=== PATIENT | male | born 1955 | race Caucasian/White ===

== ENCOUNTER → 2023-05-02 15:27 | Outpatient (BNVA) | payer BC, SELFPAY | PROVIDERS: PCP Family Medicine; Visit Provider Physician Assistant Surgical ==

== ENCOUNTER 2023-06-06 13:44 | Outpatient (AMB) | payer BC, SELFPAY ==
--- NOTE | 2023-06-06 13:50 | A.OFFVIS_ITS ---
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 He heard about our program online. His goal is to lose weight and achieve a healthy lifestyle as well as to improve, if not resolve, obesity related medical conditions, including HTN and HLD. He reports first being concerned about his weight lifelong, highest weight to date was 270. Current weight is 231.6 with a BMI of 35.2. He has tried multiple methods of weight loss including fad diets without permanent results. He lives with his family. 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 He states he would prefer to have surgery in October when he is not working (oct-january) He wakes at:?7 am, and goes to bed at?11 pm. Dinner is at 6 pm. Breakfast: skip, coffee NF half and half w stevia or eggs w bagel w butter AM snack: skip Lunch: deli wrap or sandwich PM snack: skip Dinner: chicken, salad, chicken parm, schnitzel After dinner: ice cream Other snacks: cake, pastry Liquids: snapple diet iced tea 48 oz, rare soda, OJ 8 oz Alcohol/marijuana/tobacco intake: none Exercise: none, no home equipment, could join a gym GERD score: 14 ELAINE score: 5 ESS score: 6 QOL score: 78 PFSH Surgical History No pertinent past surgical history Family History Mother Hypertension High cholesterol Lung cancer Father Hypertension High cholesterol Stroke Heart attack Brother Hypertension Daughter No problems noted. Daughter No problems noted. Social History Alcohol intake: never Patient Tobacco Use Status: Never used Tobacco Physical Exam Const General: cooperative, healthy appearing and no acute distress Orientation/consciousness: patient oriented x3 HEENT Head: Yes normal to inspection Ears: hearing grossly normal bilaterally General nose exam: Normal external nose present Face and sinus: Yes normal facial exam Eyes General: appearance normal, both eyes and all related structures Resp Effort & Inspection: normal respiratory effort Auscultation: clear to auscultation bilaterally Cardio Rate: regular rate Rhythm: regular rhythm Heart sounds: S1 normal heart sound present and S2 normal heart sound present GI Inspection: Yes normal to inspection, No distended and Yes obesity Palpation (GI): Soft to palpation, nontender and no guarding Auscultation: normal bowel sounds Skin General skin exam: no rashes or lesions noted Neuro General: patient oriented x3 Extrem General: No edema Psych Appearance: grossly normal Mental Status: mental status grossly normal Speech and movement: Normal speech and movement present Affect: normal affect Attitude: cooperative Assessment & Plan Assessment & Plan (1) Obesity (BMI 30-39.9): Code(s): E66.9 - Obesity, unspecified Plan: This is a?68 yo male who will start our SWL program to prepare for bariatric surgery.? Blood work, h pylori , CXR, ECG, Abd US and UGI will be ordered after the next appointment in late June or July as he wishes to push out the timeline at this time. He will be scheduled for RD and BH initial consultations. He will start SWL classes and watch the first three videos before her next appointment. ? Adequate sleep of 7-8 hours per night discussed, awakening at 7 am and going to bed at 11 pm ? Purchase body composition analyzer scale (Jerman freeman or Megan recommended) and check weight weekly. The best time to do this is first thing in the morning after going to the bathroom. 1. Nutritional counseling: Be sure to careful read the number of scoops per shake Start with 3 Premier Protein shakes ([employer], [employer], [employer]) First shake, (1 scoop in 8 oz low fat unsweetened almond milk or water) at 8am- 10am Second shake, (1 scoop in 8 oz low fat unsweetened almond milk or water) at 12pm-2pm 1 protein bar (Zone Perfect bars at [employer], [facility], or [employer]) at 3pm-5pm. Dinner at 6pm (9 forks of protein and 9 forks of salad/vegetables). Meal to include lean meat (beef, fish, pork, turkey, chicken), cooked vegetables or a salad with olive oil and/or fruits (berries, pears, apples, kiwi). Avoid salt, breads, potatoes, rice, pasta, desserts. Another shake with 1/2 scoop in 8 oz unsweetened almond milk at 8pm-10pm. Try to drink 64 oz of water daily and avoid soda and juices. ?2. Each shake would be drunk slowly, like coffee in a period of 2 hours. ?3. Cut each bar in 4 pieces and eat each piece in 30 min ?to make each bar last 2 hours. ?4. I emphasized the importance of measuring accurately the food portion and measure it carefully when serving the food on the plate ?5. The meal portions include 9 full-size forks of meat and 9 full-size forks of salad. You always eat the meat portion but you can replace up to half of the forks of salad/vegetables with rice, potatoes or pasta, or a fruit ?if you like. The less you do it the better weight loss will be. ?6. One full-size fork is what can be scooped on the fork without falling aside and not what can be bit with the fork. Use regular forks like those you find in a typical restaurant. ?7.? Please send me weight measurements as soon as possible and then once a week. Always include your diet and exercise plan. Alternatively come weekly at the office for weight checks and send me the measurements. ?8. Exercise counseling: Begin by watching a stretching for beginners video. Start slowly and begin to stretch your muscles. You should do this before and after each exercise session to prevent injury. Please join [employer] gym near your home. Ask the nursing agency manager or one of the trainers how to use the machines if you are unfamiliar with them. Start elliptical with a resistance of 2. Increase resistance by 1 every 3 min to your most comfortable resistance with a max resistance of 8. Reduce the resistance by 1 every 3 minutes back down to 2 and repeat cycles for 300 calories. Alternatively, start treadmill with a speed of 3.0 and incline of 0, increasing incline by 1 every 3 minutes to the highest comfortable level (max 6 for now) then decrease in the same fashion. Repeat process to a goal of 300 calories. Goal of 2000 calories burned or more weekly. You may also consider use of the stationary bike. The easiest would be to chose the fat-burn or interval training program on the machine and do this until you reach the 300 calorie goal. Alternatively, you can manually adjust the resistance in a similar fashion as mentioned above, (resistance of 2-8 with a goal speed of 12 mph). Tracking calories is essential. 9. Alternatively start walking outside daily, tracking calories with a goal of 300 calories per day, daily. You can download the liza [employer] which can track your time, distance and calories while walking outside. You press start in the liza when you start and then stop when you are finished. 10.? It is important to communicate with me weekly once you start, your weight and if you are having any problems 11. I will order the labs, EKG and chest X-Ray after our next appointment. 12. Discussed and answered all questions regarding?obtained consent to participate in the [facility]?Registry. 13. Please follow the diet plan exactly, without any change. If you do not like something about the plan or you feel hungry, you need to communicate with me so I can help you revise the plan. You should not change the plan yourself. Text me at [phone] 14. Goal is to lose at least 12 pounds in the first month 15. Goal is to lose 10% of your weight before surgery, which is about 23 lbs. Ultimate weight goal: 208 lbs or less before surgery Patient is morbidly obese and is not considered stable at this time.?I spent a total of 70 minutes reviewing/updating records, examining the patient and co unseling the patient on weight management as detailed above. Coding Level of Care Code New Pt Level 5 (34982) Diagnoses Obesity (BMI 30-39.9) E66.9 Time Spent (min) 70
[2023-06-06 13:54] VITALS: BP 118/60; PULSE 87; TEMP 36.8; O2SAT 99; BMI 35.2
== END 2023-06-06 15:15 | disposition home or self-care (01) ==
PROVIDERS: PCP Family Medicine; Visit Provider Physician Assistant Surgical
DX: E66.9 Obesity, unspecified (principal); Z68.35 Body mass index [BMI] 35.0-35.9, adult
CPT/HCPCS: 99205

== ENCOUNTER → 2023-06-06 13:44 | Outpatient (BNVA) | payer BC, SELFPAY | PROVIDERS: PCP Family Medicine; Visit Provider Physician Assistant Surgical ==

== ENCOUNTER 2023-07-22 10:04 | Outpatient (AMB) | payer BC, SELFPAY ==
--- NOTE | 2023-07-22 10:07 | MHC.OFFVISWM ---
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 They were last seen in the office on 06/06/23, recorded weight at that time was 231.6 pounds, with a BMI of 35.2. Today's weight is 230.4 pounds and BMI is 35. There has been a weight loss of 1.2 pounds since initiating the surgical weight loss program on 06/06/23 with a total body weight loss of 0.5 %. Pre op work up completed as follows: SWL classes:? []8 appts: not yet seen ? ? RD appts: not yet seen Labs: not yet done H. pylori: not yet done CXR: not yet done EKG: not yet done ABD U/S: not yet done UGI: not yet done The patient reports he has not started the meal plans as he felt he wasn't ready, but has decreased his food intake. He states he is now going to start the meal plan on July 26. Current meal plan includes: 3 Premier Protein shakes ([employer], [employer], [employer]) First shake, (1 scoop in 8 oz low fat unsweetened almond milk or water) at 8am-10am Second shake, (1 scoop in 8 oz low fat unsweetened almond milk or water) at 12pm-2pm 1 protein bar (Zone Perfect bars at [employer], [facility], or [employer]) at 3pm-5pm. Dinner at 6pm (9 forks of protein and 9 forks of salad/vegetables). Another shake with 1/2 scoop in 8 oz unsweetened almond milk at 8pm-10pm. Drinking 40 oz of water Current exercise plan includes: not started [facility] Surgical History No pertinent past surgical history Family History Mother Hypertension High cholesterol Lung cancer Father Hypertension High cholesterol Stroke Heart attack Brother Hypertension Daughter No problems noted. Daughter No problems noted. Social History Alcohol intake: never Patient Tobacco Use Status: Never used Tobacco Physical Exam Const General: healthy appearing and no acute distress Resp Effort & Inspection: normal respiratory effort Auscultation: clear to auscultation bilaterally Cardio Rate: regular rate Rhythm: regular rhythm GI Auscultation: normal bowel sounds Extrem General: Yes normal to inspection Assessment & Plan Assessment & Plan (1) Obesity (BMI 30-39.9): Code(s): E66.9 - Obesity, unspecified Plan: He states he is now ready to commit to the plans. Will schedule appropriate appointments Text me with any issues. 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 He may use RTD shakes at the [email or web address] for his meal plan (Premier Protein RTD 1/2 carton x 2 and 1/4 carton x 1 w added milk/water) Orders: Orders Vitamin B12 and Folate Today E66.9 - Obesity, unspecified, E78.00 - Pure hypercholesterolemia, unspecified, I10 - Essential (primary) hypertension Comprehensive Met. Panel Today E66.9 - Obesity, unspecified, E78.00 - Pure hypercholesterolemia, unspecified, I10 - Essential (primary) hypertension C Reactive Protein Today E66.9 - Obesity, unspecified, E78.00 - Pure hypercholesterolemia, unspecified, I10 - Essential (primary) hypertension Ferritin Today E66.9 - Obesity, unspecified, E78.00 - Pure hypercholesterolemia, unspecified, I10 - Essential (primary) hypertension Hemoglobin A1c Today E66.9 - Obesity, unspecified, E78.00 - Pure hypercholesterolemia, unspecified, I10 - Essential (primary) hypertension Insulin Today E66.9 - Obesity, unspecified, E78.00 - Pure hypercholesterolemia, unspecified, I10 - Essential (primary) hypertension IRON PROFILE Today E66.9 - Obesity, unspecified, E78.00 - Pure hypercholesterolemia, unspecified, I10 - Essential (primary) hypertension Lipid Panel Today E66.9 - Obesity, unspecified, E78.00 - Pure hypercholesterolemia, unspecified, I10 - Essential (primary) hypertension PTHI Today E66.9 - Obesity, unspecified, E78.00 - Pure hypercholesterolemia, unspecified, I10 - Essential (primary) hypertension TSH reflex Free T4 Today E66.9 - Obesity, unspecified, E78.00 - Pure hypercholesterolemia, unspecified, I10 - Essential (primary) hypertension Vitamin A Today E66.9 - Obesity, unspecified, E78.00 - Pure hypercholesterolemia, unspecified, I10 - Essential (primary) hypertension Vitamin B1 Today E66.9 - Obesity, unspecified, E78.00 - Pure hypercholesterolemia, unspecified, I10 - Essential (primary) hypertension Vitamin D 25-OH Total Today E66.9 - Obesity, unspecified, E78.00 - Pure hypercholesterolemia, unspecified, I10 - Essential (primary) hypertension Zinc Today E66.9 - Obesity, unspecified, E78.00 - Pure hypercholesterolemia, unspecified, I10 - Essential (primary) hypertension ECG 12 lead EKG Today E66.9 - Obesity, unspecified, E78.00 - Pure hypercholesterolemia, unspecified, I10 - Essential (primary) hypertension FL upper GI w air Today E66.9 - Obesity, unspecified, E78.00 - Pure hypercholesterolemia, unspecified, I10 - Essential (primary) hypertension Complete Blood Count Auto Diff Today E66.9 - Obesity, unspecified, E78.00 - Pure hypercholesterolemia, unspecified, I10 - Essential (primary) hypertension H Pylori Breath Test Today E66.9 - Obesity, unspecified, E78.00 - Pure hypercholesterolemia, unspecified, I10 - Essential (primary) hypertension US abdomen comp w elastography Today E66.9 - Obesity, unspecified, E78.00 - Pure hypercholesterolemia, unspecified, I10 - Essential (primary) hypertension XR chest 2V Today E66.9 - Obesity, unspecified, E78.00 - Pure hypercholesterolemia, unspecified, I10 - Essential (primary) hypertension Referrals Behavioral Health Referral E66.9 - Obesity, unspecified, E78.00 - Pure hypercholesterolemia, unspecified, I10 - Essential (primary) hypertension Nutrition/Dietitian Referral E66.9 - Obesity, unspecified, E78.00 - Pure hypercholesterolemia, unspecified, I10 - Essential (primary) hypertension Coding Level of Care Code Est Pt Level 3 (78101) Diagnoses Obesity (BMI 30-39.9) E66.9
[2023-07-22 10:12] VITALS: BP 136/64; PULSE 73; TEMP 36.7; O2SAT 99; BMI 35.0
== END 2023-07-22 10:44 | disposition home or self-care (01) ==
PROVIDERS: PCP Family Medicine; Visit Provider Physician Assistant Surgical
DX: E66.9 Obesity, unspecified (principal); Z68.35 Body mass index [BMI] 35.0-35.9, adult
CPT/HCPCS: 99214

== ENCOUNTER → 2023-07-22 10:04 | Outpatient (BNVA) | payer BC, SELFPAY | PROVIDERS: PCP Family Medicine; Visit Provider Physician Assistant Surgical | DX: E66.9 Obesity, unspecified (principal); Z68.35 Body mass index [BMI] 35.0-35.9, adult | CPT/HCPCS: 99211 ==

== ENCOUNTER 2023-07-22 10:56 | Outpatient (REF) | payer BC, SELFPAY ==
[2023-07-24 14:48] LABS: H Pylori Breath Test Negative (Negative)
== END 2023-07-22 10:57 | disposition home or self-care (01) ==
LOC: HO.LNP 10:56
PROVIDERS: Visit Provider Physician Assistant Surgical
DX: E66.9 Obesity, unspecified (principal); E78.00 Pure hypercholesterolemia, unspecified; I10 Essential (primary) hypertension
CPT/HCPCS: 83013

== ENCOUNTER 2023-07-23 17:03 | Outpatient (REF) | payer BC, SELFPAY | END 2023-07-23 17:04 | disposition home or self-care (01) | LOC: HO.LNP 17:03 | PROVIDERS: Visit Provider Physician Assistant Surgical | DX: Z13.89 Encounter for screening for other disorder (principal) ==

== ENCOUNTER 2023-08-13 09:14 | Outpatient (AMB) | payer BC, SELFPAY ==
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
== END 2023-08-13 10:01 | disposition home or self-care (01) ==
LOC: HO.HBST 09:14
PROVIDERS: PCP Family Medicine; Referring Provider Physician Assistant Surgical; Visit Provider Counselor Mental Health
DX: F41.8 Other specified anxiety disorders (principal); E66.9 Obesity, unspecified; Z68.35 Body mass index [BMI] 35.0-35.9, adult
CPT/HCPCS: 90791

== ENCOUNTER → 2023-08-13 09:14 | Outpatient (BNVA) | payer BC, SELFPAY | PROVIDERS: PCP Family Medicine; Referring Provider Physician Assistant Surgical; Visit Provider Counselor Mental Health ==

== ENCOUNTER 2023-08-21 09:11 | Outpatient (AMB) | payer BC, SELFPAY ==
--- NOTE | 2023-08-21 08:36 | MHC.OFFVISWM ---
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 They were last seen in the office on 07/22/23, recorded weight at that time was 230.4 pounds, with a BMI of 35. Today's weight is 215 pounds and BMI is 32.7. There has been a weight loss of 16.6 pounds since initiating the surgical weight loss program on 06/06/23 with a total body weight loss of 7.16 %. Pre op work up completed as follows: SWL classes:? []/8 BH appts: cleared-08/13/23 ? ? RD appts: 08/26/23 Labs: 07/24/23- outside facility, [facility] [place] CBC wnl H. pylori: 07/22/23-neg CXR: not yet done EKG: not yet done ABD U/S: 08/26/23 UGI: 10/01/23 The patient reports he is doing very well. 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 He feels as though he is not hungry without the third shake. He excluded the 8-10 am shake, he is also not doing the 3rd shake 4 days of the week. Current meal plan includes: 3 Premier Protein shakes ([employer], [employer], [employer]) First shake, (1 scoop in 8 oz low fat unsweetened almond milk or water) at 8am-10am Second shake, (1 scoop in 8 oz low fat unsweetened almond milk or water) at 12pm-2pm 1 protein bar (Zone Perfect bars at [employer], [employer], or [employer]) at 3pm-5pm. Dinner at 6pm (9 forks of protein and 9 forks of salad/vegetables). Another shake with 1/2 scoop in 8 oz unsweetened almond milk at 8pm-10pm. Drinking 48 oz of water Exercise plan: went to [employer] and is planning to join but has not done anything due to multiple shows. [facility] Surgical History No pertinent past surgical history Family History Mother Hypertension High cholesterol Lung cancer Father Hypertension High cholesterol Stroke Heart attack Brother Hypertension Daughter No problems noted. Daughter No problems noted. 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 Dinner at 6pm (9 forks of protein and 9 forks of salad/vegetables). States doesn't want/need anything after dinner Encouraged to start exercise continue to text weight weekly reminded of upcoming appts will get the rest of the labwork done at appt 08/26/23 Telehealth Telehealth Location of provider rendering services: practice address Location of patient: address on file Patient Identification confirmed using: Name, : Yes Telehealth method: video Patient verbally consented to treatment: Yes Patient verbally consented to billing insurance company: Yes Patient informed of any privacy concerns related to visit: Yes Minutes spent on Phone/Video with Pt.: 20 Coding Level of Care Code Tele Est Pt Level 3 (47991) Diagnoses Obesity (BMI 30-39.9) E66.9 Time Spent (min) 25
[2023-08-21 08:38] VITALS: BMI 32.7
== END 2023-08-21 09:14 | disposition home or self-care (01) ==
LOC: HO.HBS 09:11
PROVIDERS: PCP Family Medicine; Visit Provider Physician Assistant Surgical
DX: E66.9 Obesity, unspecified (principal); Z68.32 Body mass index [BMI] 32.0-32.9, adult
CPT/HCPCS: 99213

== ENCOUNTER → 2023-08-21 09:11 | Outpatient (BNVA) | payer BC, SELFPAY | PROVIDERS: PCP Family Medicine; Visit Provider Physician Assistant Surgical ==

== ENCOUNTER 2023-08-26 08:12 | Outpatient (REF) | payer BC, SELFPAY ==
--- NOTE | ~2023-08-26 | US_ITS ---
EXAMINATION: US COMPLETE ABDOMEN WITH LIVER ELASTOGRAPHY CLINICAL INFORMATION: Obesity. COMPARISON: None available. TECHNIQUE: Real-time imaging of the abdominal viscera. Noninvasive ultrasound liver fibrosis assessment is performed using Constantino ElastPQ point quantification shear wave elastography (2D-SWE) with a C5-2 MHz transducer. Multiple elastography samples are obtained. FINDINGS: PANCREAS: Normal. The visualized pancreatic head and body are normal in appearance. The remainder of the pancreas is obscured from visualization by the overlying bowel gas. ABDOMINAL AORTA: The proximal, middle, and distal aortic segments are normal in caliber. INFERIOR VENA CAVA: Visualized portions are normal. LIVER: The liver demonstrates normal size, contour and echogenicity. No intrahepatic biliary duct dilatation. Within the right hepatic lobe abutting the gallbladder, a 1.5 x 1.7 x 1.2 cm hyperechoic, circumscribed mass is seen. This shows no associated color Doppler flow. There are multiple simple hepatic cysts, which require no imaging follow-up. The largest on the right measures 1.9 cm, and of the left 1.4 cm. The right lobe measures 13.9 cm in length. The left lobe measures 11.6 cm in length. Portal flow is towards the liver (hepatopetal). Shear wave liver elastography median stiffness is 2.17 m/s (reference: normal median stiffness is 1.3 m/s or less). IQR/median stiffness to assess sampling precision is 0.09 (reference: good quality data set is IQR/median stiffness of 0.15 or less). GALLBLADDER: Normal. The gallbladder is physiologically distended without evidence of stones, sludge, polyps, wall thickening or pericholecystic fluid. COMMON BILE DUCT: Normal in caliber measuring 0.4 cm in diameter. RIGHT KIDNEY: At the lower pole laterally, a 6.3 cm benign, simple cyst is seen, for which no imaging follow-up is recommended. No hydronephrosis. No renal calculi or focal parenchymal lesions. The kidney measures 10.9 cm in maximum dimension. LEFT KIDNEY: At the upper pole, a 2.8 cm benign, simple cyst is seen, for which no imaging follow-up is recommended. No hydronephrosis. No renal calculi or focal parenchymal lesions. The kidney measures 11.0 cm in maximum dimension. SPLEEN: Normal. The spleen measures 10.9 cm in maximum dimension. FREE FLUID: None. US/US abdomen comp w elastography IMPRESSION: 1. A 1.7 cm hyperechoic, circumscribed mass is seen within the right hepatic lobe towards the gallbladder fossa. This has ultrasound features characteristic for benign hemangioma, and it is of doubtful clinical significance. If clinically indicated (i.e., history of hepatocellular disease or known malignancy), this could be further evaluated with dynamic CT or MRI. 2. Liver elastography: Measuremensts are consistent with compensated advanced chronic liver disease. REFERENCE: Society of Radiologists in Ultrasound Liver Stiffness Thresholds (2020): LIVER STIFFNESS THRESHOLDS: *Liver Stiffness equal or less than 1.3 m/s: High probability of being normal. *Liver Stiffness less than 1.7 m/s: In the absence of other known clinical signs, rules out compensated advanced chronic liver disease. *Liver Stiffness 1.7-2.1 m/s: Suggestive of compensated advanced chronic liver disease but need further test for confirmation. *Liver Stiffness over 2.1 m/s: Rules in compensated advanced chronic liver disease. *Liver Stiffness over 2.4 m/s: Suggestive of clinically significant portal hypertension. QUALITY OF DATA SET: *IQR/Median value equal or less than 0.15 implies a quality data set. *IQR/Median value over 0.15 implies a poor quality data set. SIGNIFICANT CHANGE FROM PRIOR EXAM: Significant change if liver stiffness measurement is 10% or greater from prior exam. OTHER CONSIDERATIONS: The stage of liver fibrosis may be overestimated in the setting of acute hepatitis, liver inflammation, elevated liver function tests, hepatic vascular congestion, obstructive cholestasis, non-fasting state, and infiltrative diseases such as amyloidosis and lymphoma. In some patients with NAFLD, the liver stiffness thresholds for compensated advanced chronic liver disease may be lower. In causes other than viral hepatitis and NAFLD, liver stiffness thresholds are not well established.
--- NOTE | ~2023-08-26 | XR_ITS ---
EXAMINATION: XR CHEST CLINICAL INFORMATION: Obesity COMPARISON: None available. TECHNIQUE: 2 views of the chest were obtained. FINDINGS: No significant abnormality is noted involving the heart, lungs, mediastinum, bony thorax or soft tissues. XR/XR chest 2V IMPRESSION: Unremarkable examination.
--- NOTE | 2023-08-26 08:31 | ECG_ITS ---
Test Reason : obesity Blood Pressure : / mmHG Vent. Rate : 074 BPM Atrial Rate : 074 BPM P-R Int : 178 ms QRS Dur : 100 ms QT Int : 376 ms P-R-T Axes : 060 028 026 degrees QTc Int : 417 ms Normal sinus rhythm Normal ECG No previous ECGs available Referred By: Chacorta Red Electronically Signed By:GREGG BANERJEE
[2023-08-26 10:01] LABS: Estimated Average Glucose 105 mg/dL; Hemoglobin A1c % 5.3 % (<6.0)
[2023-08-26 10:13] LABS: Alanine Aminotransferase 27 U/L (0-40); Albumin Level 4.4 g/dL (3.5-5.0); Alkaline Phosphatase 52 U/L (39-117); Anion Gap 15 (12-20); Aspartate Amino Transferase 23 U/L (5-37); Bilirubin Total 0.5 mg/dL (0.0-1.0); Blood Urea Nitrogen 72 mg/dL (9-16); Calcium 9.7 mg/dL (8.4-10.2); Carbon Dioxide 24 mmol/L (22-29); Chloride 105 mmol/L (96-108); Cholesterol 119 mg/dL (<200); Estimated Glomerular Filt Rate 36; Glucose Random 96 mg/dL (60-115); HDL Cholesterol 41 mg/dL (>40); Iron 81 mcg/dL (45-160); LDL Cholesterol Calculated 66 mg/dL (<100); Percent Iron Saturation 33 % (15-50); Potassium 3.8 mmol/L (3.3-5.1); Sodium 140 mmol/L (135-145); Total Iron Binding Capacity 247 mcg/dL (228-428); Total Protein 6.8 g/dL (6.5-8.0); Triglycerides 61 mg/dL (<150); Unsaturated Iron Binding 166 ug/dL
[2023-08-26 10:34] LABS: Ferritin 193 ng/mL (20-250); Insulin 15 uU/mL (2-29); TSH reflex Free T4 1.71 uIU/mL (0.32-4.0); Vitamin D 25-OH Total 48.6 ng/mL (>30)
[2023-08-26 10:36] LABS: Folate 17.5 ng/mL (> or = 4.0); Vitamin B12 674 pg/mL (200-900)
[2023-08-27 14:43] LABS: Calcium (PTHI) 9.8 mg/dL (8.6-10.3); PTHI 42 pg/mL (16-77)
[2023-08-29 06:03] LABS: Zinc 122 mcg/dL (60-130)
[2023-08-29 23:53] LABS: Vitamin A 92 mcg/dL (38-98)
[2023-08-30 17:28] LABS: Vitamin B1 40 nmol/L (8-30)
== END 2023-08-26 08:13 | disposition home or self-care (01) ==
LOC: HO.US 08:12
PROVIDERS: PCP Family Medicine; Visit Provider Physician Assistant Surgical
DX: E66.9 Obesity, unspecified (principal); E78.00 Pure hypercholesterolemia, unspecified; I10 Essential (primary) hypertension; Z71.3 Dietary counseling and surveillance
CPT/HCPCS: 36415; 71046; 76705; 76981; 80053; 80061; 82306; 82607; 82728; 82746; 83036; 83525; 83540; 83970; 84425; 84443; 84590; 84630; 86140; 93005; 97802

== ENCOUNTER 2023-08-26 13:17 | Outpatient (AMB) | payer BC, SELFPAY ==
--- NOTE | 2023-08-26 13:06 | MHC.AMNUTRGE ---
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 would prefer to do premade shakes instead. does not particularly enjoy the bars . dinner protein and veg SWL online classes: completed, scored well, reviewed. Dietary counseling reduction Diagnosis Nutrition problem #1 overweight/obesity As related to (etiology) #1 excess energy intake and physical inactivity As evidenced by (sign/symptom) #1 high BMI Monitoring/Goals Nutrition problem monitoring total energy intake, level of knowledge/skill, total PRO intake, total CHO intake, weight and oral fluids Outcome progress progressing Learning/Education Readiness to learn good Stages of change action Educational materials provided Yes Most Recent Diabetes Results: Cholesterol 119 mg/dL (<200) 08/26/23 HDL Cholesterol 41 mg/dL (>40) 08/26/23 Triglycerides 61 mg/dL (<150) 08/26/23 Creatinine 1.89 mg/dL (0.5-1.4) H 08/26/23 Blood Urea Nitrogen 72 mg/dL (9-16) H 08/26/23 Sodium 140 mmol/L (135-145) 08/26/23 Potassium 3.8 mmol/L (3.3-5.1) 08/26/23 Chloride 105 mmol/L (96-108) 08/26/23 Carbon Dioxide 24 mmol/L (22-29) 08/26/23 Calcium 9.7 mg/dL (8.4-10.2) 08/26/23 AST 23 U/L (5-37) 08/26/23 ALT 27 U/L (0-40) 08/26/23 Total Protein 6.8 g/dL (6.5-8.0) 08/26/23 Albumin 4.4 g/dL (3.5-5.0) 08/26/23 [facility] Surgical History No pertinent past surgical history Family History Mother Hypertension High cholesterol Lung cancer Father Hypertension High cholesterol Stroke Heart attack Brother Hypertension Daughter No problems noted. Daughter No problems noted. Social History Alcohol intake: never Patient Tobacco Use Status: Never used Tobacco Assessment & Plan Assessment & Plan (1) Obesity (BMI 30-39.9): Code(s): E66.9 - Obesity, unspecified Patient Instructions: recommended trying to decrease the load on the kidneys by sticking to 20g protein per sitting. If drinking the 30g shakes make last 3-4 hours. Pt is cleared from a nutrition standpoint for bariatric surgery Telehealth Telehealth Location of provider rendering services: practice address Location of patient: address on file Patient Identification confirmed using: Name, : Yes Telehealth method: video Patient verbally consented to treatment: Yes Patient verbally consented to billing insurance company: Yes Patient informed of any privacy concerns related to visit: Yes Minutes spent on Phone/Video with Pt.: 35 Coding Level of Care Code Nutr Indiv Intake (42344) Diagnoses Obesity (BMI 30-39.9) E66.9 Time Spent (min) 35
== END 2023-08-26 13:47 | disposition home or self-care (01) ==
LOC: HO.HBS 13:17
PROVIDERS: PCP Family Medicine; Visit Provider Dietitian, Registered
DX: E66.9 Obesity, unspecified (principal)

== ENCOUNTER 2023-09-11 08:10 | Outpatient (AMB) | payer BC, SELFPAY ==
--- NOTE | 2023-09-11 17:16 | A.OFFVIS_ITS ---
Intake VS Expanded 09/11/23 17:17 Height 5 ft 8 in Weight 215 lb BMI 32.7 Intake Visit Reasons: TV Consult/Transfer [place] Allergies atropine Allergy (Mild, Verified 09/11/23 17:18) UNKNOWN Medication List - Last Reconciled 09/11/23 by Emeterio Horn MD atorvastatin 10 mg PO DAILY bupropion HCl 200 mg PO DAILY chlorthalidone 25 mg PO DAILY lisinopril 10 mg PO DAILY HPI TV Consult/Transfer [place] HPI Details Start time: 2pm, End time: 3pm ?I spent 40 minutes speaking with the patient on the phone plus an additional 20 minutes reviewing and updating records for a total of 60 minutes HPI Comments History of Present Illness Details Overall weight loss: 15.4lbs, or 6.68% TBWL All preop work-up was reviewed. UGI is pending We discussed extensively the issue of the elevated creatinine and potential causes. Lisinopril was reduced by his tail edger to 10mg per day Did report some lightheadedness with bending over Is doing 2 Premier protein shakes with (2 scoops each in 8oz almond milk) and one meal (9 forks of meat and 9 forks of salad or vegetables) Exercise: occasional outside walking. Just joined a Gym and will work with a diabetes trainer. [facility] Surgical History No pertinent past surgical history Family History Mother Hypertension High cholesterol Lung cancer Father Hypertension High cholesterol Stroke Heart attack Brother Hypertension Daughter No problems noted. Daughter No problems noted. Social History Alcohol intake: never Patient Tobacco Use Status: Never used Tobacco Assessment & Plan Assessment & Plan (1) Obesity (BMI 30-39.9): Code(s): E66.9 - Obesity, unspecified Plan: 1. Plan for lap sleeve gastrectomy. If diaphragmatic or ventral hernias are present at time of surgery, these will be repaired laparoscopically as well. Risks and complications were discussed in detail including possible conversion to an open procedure, anastomotic leak, bleeding requiring transfusion, small bowel obstruction, , DVT and pulmonary embolism, cardiac, or pulmonary complications, as middle or intermediate school principal complications such as anastomotic ulcer, insufficient weight loss and vitamin deficiencies. I emphasized the importance of close follow-up, adherence to instructions and good communication. 2. Change nutritional plan to two Premier protein shakes with HALF scoop each in 8oz almond milk at 7am-9am and 10am-12pm, lunch at 1-2pm (9 forks of protein and 9 forks of salad or vegetables) and 2 more Premier shakes with ONE scoop each in 8oz almond milk at 4pm-6pm and 7pm-9pm 3. Try the lemon flavor Celebrate protein bars from the hospital's gift shop and let me know if you like them 4.Check your blood pressure every monring you wake up and let me know if it is less than 120/70 mmHg at any point 5. Send me weight measurements on Saturday and then weekly on Fridays (2) BMI 31.0-31.9,adult: Code(s): Z68.31 - Body mass index [BMI] 31.0-31.9, adult (3) CKD (chronic kidney disease): Code(s): N18.9 - Chronic kidney disease, unspecified (4) Hypercholesterolemia: Code(s): E78.00 - Pure hypercholesterolemia, unspecified (5) HTN (hypertension): Code(s): I10 - Essential (primary) hypertension (6) Mixed anxiety and depressive disorder: Code(s): F41.8 - Other specified anxiety disorders Telehealth Telehealth Location of provider rendering services: practice address Location of patient: address on file Patient Identification confirmed using: Name, : Yes Telehealth method: voice only Patient verbally consented to treatment: Yes Patient verbally consented to billing insurance company: Yes Patient informed of any privacy concerns related to visit: Yes Minutes spent on Phone/Video with Pt.: 60 Coding Level of Care Code Tele Est Pt Level 5 (82810) Diagnoses Obesity (BMI 30-39.9) E66.9 BMI 31.0-31.9,adult Z68.31 CKD (chronic kidney disease) N18.9 Hypercholesterolemia E78.00 HTN (hypertension) I10 Mixed anxiety and depressive disorder F41.8 Time Spent (min) 60
[2023-09-11 17:17] VITALS: BMI 32.7
== END 2023-09-11 17:34 | disposition home or self-care (01) ==
LOC: HO.HBS 08:10
PROVIDERS: PCP Family Medicine; Visit Provider Surgery
DX: E66.9 Obesity, unspecified (principal); Z68.31 Body mass index [BMI] 31.0-31.9, adult; I12.9 Hypertensive chronic kidney disease with stage 1 through stage 4 chronic kidney disease, or unspecified chronic kidney disease; N18.9 Chronic kidney disease, unspecified
CPT/HCPCS: 99443

== ENCOUNTER → 2023-09-11 08:10 | Outpatient (BNVA) | payer BC, SELFPAY | PROVIDERS: PCP Family Medicine; Visit Provider Surgery ==

== ENCOUNTER 2023-10-01 08:24 | Outpatient (REF) | payer BC, SELFPAY ==
--- NOTE | ~2023-10-01 | FL_ITS ---
EXAMINATION: XR FLUOROSCOPY UPPER GI WITH AIR CLINICAL INFORMATION: Preop evaluation prior to bariatric surgery COMPARISON: None TECHNIQUE: Fluoroscopic air contrast upper GI examination was performed utilizing standard techniques with thin and thick barium and effervescent granules. Numerous spot images were obtained. FINDINGS: Lateral cine images of the oropharynx and hypopharynx demonstrate normal swallow mechanism with normal epiglottic inversion and soft palate elevation. No tracheal penetration, glottic or subglottic aspiration identified. No nasopharyngeal reflux present. There is a small round filling defect noted in the hypopharynx of unknown etiology (refer to cine series #2, image 12 of 69). There is mild cricopharyngeal achalasia present. Dual and single contrast images of the esophagus demonstrate an irregular appearance of the mid esophageal mucosa that may be related to early Castro's change, representing a developing benign stricture (refer to cine series #2, image 2 of 69). This mild degree of esophageal narrowing was noted throughout the examination. No mass, or ulcerations are identified. Nonpropulsive tertiary contractions and to and fro motion of the barium column are noted throughout the esophagus represents esophageal dysmotility. A small hiatal hernia is present. Gastroesophageal reflux is seen up to the level of thoracic inlet. Dual contrast and single contrast images of the stomach demonstrated normal contour and mucosal pattern without evidence of mass, ulceration, or other abnormality. Contrast freely passed into the gastric antrum and duodenal bulb without delay. Single and air-contrast images of the duodenal bulb demonstrate no abnormality. The duodenal sweep has a normal appearance, course, and mucosal fold appearance. The imaged proximal jejunum has a normal fold pattern and caliber. FLUOROSCOPY TIME: 3 minutes 12 seconds Number of Spot Images: 8 Number of Cine: 8 DOSE AREA PRODUCT: 2409 uGy-m2 (microgray-meter squared) FL/FL upper GI w air IMPRESSION: 1. Small round filling defect noted in the hypopharynx, unknown etiology. Appears to be related possibly to the piriform sinuses. Recommend postcontrast CT neck and/or direct visualization of the hypopharynx. 2. Mild cricopharyngeal achalasia. 3. Irregular appearance of the midesophagus mucosa that may represent minimal benign stricture, possibly based upon early Castro's changes. Recommend endoscopic evaluation 4. Small type I hiatal hernia. 5. Significant gastroesophageal reflux. 6. Presbyesophagus. This procedure was performed by Js Montiel PA-C, and supervised by Dr. Real. CHRISTOFER Farrar was notified of the above via secure text.
== END 2023-10-01 08:25 | disposition home or self-care (01) ==
LOC: HO.XRAY 08:24
PROVIDERS: PCP Family Medicine; Visit Provider Physician Assistant Surgical
DX: E66.9 Obesity, unspecified (principal); I10 Essential (primary) hypertension; E78.00 Pure hypercholesterolemia, unspecified
CPT/HCPCS: 74246

== ENCOUNTER → 2023-10-01 08:25 | Outpatient (BNV) | payer BC, SELFPAY | PROVIDERS: PCP Family Medicine; Visit Provider Radiology Diagnostic Radiology | DX: E66.9 Obesity, unspecified (principal) | CPT/HCPCS: 74246 ==

== ENCOUNTER 2023-10-11 08:17 | Outpatient (AMB) | payer BC, SELFPAY ==
--- NOTE | 2023-10-11 09:57 | MHC.OFFVISWM ---
Intake VS Expanded 10/11/23 10:15 Height 5 ft 8 in Weight 200 lb 8 oz BMI 30.5 Body Fat % 30.7 Body Fat Mass 61.6 Fat Free Mass 139.2 Visceral Fat Rating 13 Body Water % 50 Body Water Mass 100.4 Basal Metabolic Rate/Score 1,747 Intake Visit Reasons: TV Follow Up SWL Allergies atropine Allergy (Mild, Verified 09/11/23 17:18) UNKNOWN HPI TV Follow Up SWL HPI Details Start time: 9.50am, End time: 10.20am ?I spent 25 minutes speaking with the patient on the phone plus an additional 5 minutes reviewing and updating records for a total of 30 minutes HPI Comments History of Present Illness Details Overall weight loss: 29.6lbs, or 12.85% TBWL Is doing 2 Premier shakes (1 scoop in 8oz almond milk) and one meal (9 forks of protein and 9 forks of salad or vegetables). Occasionally he does a Celebrate protein bar Exercise: is doing treadmill at the gym daily for 300 calories [facility] Surgical History No pertinent past surgical history Family History Mother Hypertension High cholesterol Lung cancer Father Hypertension High cholesterol Stroke Heart attack Brother Hypertension Daughter No problems noted. Daughter No problems noted. Social History Alcohol intake: never Patient Tobacco Use Status: Never used Tobacco Assessment & Plan Assessment & Plan (1) Obesity (BMI 30-39.9): Code(s): E66.9 - Obesity, unspecified Plan: 1. Continue same nutritional plan of 2 Premier shakes (1 scoop in 8oz almond milk) and one meal (9 forks of protein and 9 forks of salad or vegetables). Use the Celebrate protein bar when hungry at night 2. Exercise: continue treadmill at the gym daily for 300 calories. Goal is to burn 2000 calories per week on exercise, which means either 300 calories daily, or 330 calories 6 days per week, or 400 calories 5 days per week, or 500 calories 4 days per week, or 650 calories 3 days per week. 3. Upper endoscopy to assess the severity of GERD, presbyesophagus and crycopharyngeal achalasia 4. Continue to send me weight measurements weekly on Fridays (2) BMI 30.0-30.9,adult: Code(s): Z68.30 - Body mass index [BMI] 30.0-30.9, adult Telehealth Telehealth Location of provider rendering services: practice address Location of patient: address on file Patient Identification confirmed using: Name, : Yes Telehealth method: voice only Patient verbally consented to treatment: Yes Patient verbally consented to billing insurance company: Yes Patient informed of any privacy concerns related to visit: Yes Minutes spent on Phone/Video with Pt.: 30 Coding Level of Care Code Tele Est Pt Level 4 (20221) Diagnoses Obesity (BMI 30-39.9) E66.9 BMI 30.0-30.9,adult Z68.30 Time Spent (min) 30
[2023-10-11 10:15] VITALS: BMI 30.5
== END 2023-10-11 10:20 | disposition home or self-care (01) ==
LOC: HO.HBS 08:18
PROVIDERS: PCP Family Medicine; Visit Provider Surgery
DX: E66.9 Obesity, unspecified (principal); Z68.30 Body mass index [BMI] 30.0-30.9, adult
CPT/HCPCS: 99443

== ENCOUNTER → 2023-10-11 08:17 | Outpatient (BNVA) | payer BC, SELFPAY | PROVIDERS: PCP Family Medicine; Visit Provider Surgery ==

== ENCOUNTER 2023-10-22 09:39 | Day surgery (SDC) | payer BC, SELFPAY ==
[2023-10-16 09:20] VITALS: BMI 30.4
--- NOTE | 2023-10-19 21:03 | P.HPSUR_ITS ---
Pre-Procedural Eval Section A Date of Service: 10/19/23 The patient is an INPATIENT: No The History & Physical has been completed within 30 days and I have reviewed it.: Yes Section B Chief Complaint: Abnormal findings on diagnostic imaging of other p Relevant Family History (Specify if Yes): No Relevant Social History: None Present Medications: None Medical History: No relevant PMH History of Previous Operations: No relevant previous surgery Allergies: Allergies Allergy/AdvReac Type Severity Reaction Status Date / Time atropine Allergy Mild UNKNOWN Verified 09/11/23 17:18 Review of Systems Sugical H&P ROS: Negative: Constitution, Cardiovascular, Respiratory, Neurological, Psychiatric, Hem-Onc, Allergic/Immunologic, Gastrointestinal, Genitourinary, Musculoskeletal, Integumentary, Endocrine and Eyes/Ear s/Nose/Throat Exam Surgical H&P Exam: Normal: HEENT, Normal: Heart, Normal: Lungs, Normal: Extremities, Normal: Abdomen, Normal: Skin and Normal: Neurological Plan Diagnosis/Plan: Unchanged I have reviewed the history and physical and performed a pertinent physical examination on my patient. No changes have occurred unless specified. Time Spent With Patient Time: Total time managing care of this patient today ____ minutes.
--- NOTE | 2023-10-21 10:08 | HO.ANESPROP2 ---
Documented by User: Mandy Dela Cruz NP 10/21/23 10:09 HPI - Anesthesia Eval Consult details Narrative: 68yo M for Upper Endoscopy PMF Active Problems Active Problems: All Active Problems (Updated 10/16/23 @ 09:18 by Tyesha Choudhary RN) BMI 30.0-30.9,adult (Acute) Abnormal UGI series (Acute) BMI 31.0-31.9,adult (Acute) CKD (chronic kidney disease) (Acute) Mixed anxiety and depressive disorder (Acute) Hypercholesterolemia (Acute) HTN (hypertension) (Acute) Obesity (BMI 30-39.9) (Acute) Past Medical History Medical History Chronic renal insufficiency Depression Anxiety Elevated cholesterol HTN (hypertension) Family History Family History Mother Hypertension High cholesterol Lung cancer Father Hypertension High cholesterol Stroke Heart attack Brother Hypertension Daughter No problems noted. Daughter No problems noted. Surgical History Surgical History Hx of colonoscopy No pertinent past surgical history Social History Alcohol intake: never Patient Tobacco Use Status: Never used Tobacco Use of substances other than those prescribed or required for medical reasons: No Are you DNR?: No Advance Directives: No Advance Directives Information Provided: Yes Meds Allergies Allergy/AdvReac Type Severity Reaction Status Date / Time atropine Allergy Mild UNKNOWN Verified 10/22/23 10:11 Home Medications Medication Instructions Recorded Confirmed Last Taken Type atorvastatin 10 mg tablet 10 mg PO DAILY 05/03/23 10/22/23 10/22/23 History bupropion HCl 200 mg tablet,12 hr 200 mg PO DAILY 05/03/23 10/22/23 10/22/23 History sustained-release chlorthalidone 25 mg tablet 25 mg PO DAILY 05/03/23 10/22/23 10/22/23 History lisinopril 20 mg tablet 10 mg PO DAILY 09/11/23 10/22/23 10/22/23 History Exam Height,Weight and Vital Signs: Height 5 ft 8 in Weight 90.718 kg Pertinent Lab Results Pertinent Lab Results: Laboratory Tests 08/26/23 08:30 Sodium 140 Potassium 3.8 Chloride 105 Carbon Dioxide 24 BUN 72 H Creatinine 1.89 H Narrative Narrative: EKG 08/2023 Vent. Rate : 074 BPM Atrial Rate : 074 BPM P-R Int : 178 ms QRS Dur : 100 ms QT Int : 376 ms P-R-T Axes : 060 028 026 degrees QTc Int : 417 ms Normal sinus rhythm Normal ECG No previous ECGs available Assessment and Plan Assessment Anesthesia Assessment: Chart Reviewed Documented by User: Livan Singh MD 10/22/23 11:53 PMFSH Past Medical History Medical History Chronic renal insufficiency Depression Anxiety Elevated cholesterol HTN (hypertension) Family History Family History Mother Hypertension High cholesterol Lung cancer Father Hypertension High cholesterol Stroke Heart attack Brother Hypertension Daughter No problems noted. Daughter No problems noted. Family history of problems with anesthesia: No Surgical History Surgical History Hx of colonoscopy No pertinent past surgical history History of Problems with Anesthesia: No Social History Alcohol intake: never Patient Tobacco Use Status: Never used Tobacco Use of substances other than those prescribed or required for medical reasons: No Are you DNR?: No Advance Directives: No Advance Directives Information Provided: Yes Meds Allergies Allergy/AdvReac Type Severity Reaction Status Date / Time atropine Allergy Mild UNKNOWN Verified 10/22/23 10:11 Home Medications Medication Instructions Recorded Confirmed Last Taken Type atorvastatin 10 mg tablet 10 mg PO DAILY 05/03/23 10/22/23 10/22/23 History bupropion HCl 200 mg tablet,12 hr 200 mg PO DAILY 05/03/23 10/22/23 10/22/23 History sustained-release chlorthalidone 25 mg tablet 25 mg PO DAILY 05/03/23 10/22/23 10/22/23 History lisinopril 20 mg tablet 10 mg PO DAILY 09/11/23 10/22/23 10/22/23 History Exam Airway Mallampati Class: II TM Dist: >3cm Neck ROM: Full Loose/Missing/Broken Teeth: No Heart: [id number] Lungs: cta b/l Assessment and Plan Assessment Anesthesia Assessment: Anesthesia Plan Discussed Final Anesthetic Review Family History of Problems with Anesthesia: No History of Problems with Anesthesia: No NPO: Yes ASA Class: III Final Preanesthetic Review: No Changes in Pt Med Stat, Meds/Allgs Chart Reviewed, Consent Obtained/Reviewed and Anes Risks/Benef Reviewed Patient Risk: Intermediate Procedure Risk: Intermediate Assessment/Block/Sedation in SS: Assess/Block/Sedation-SS Anesthetic Plan Anesthetic Plan: MAC: and Agree w/ Assess. and Plan Disposition: Standard PACU
[2023-10-22 10:06] VITALS: BP 133/81; PULSE 76; RESP 16; TEMP 36.1; O2SAT 98
[2023-10-22] MEDS: Lactated Ringers 1,000 ML 100 ML IVCONT (10:06)
--- NOTE | 2023-10-22 11:20 | P.BOP_ITS ---
Brief Operative Note Date of Service: 10/22/23 Post-op diagnosis: same (GERD and hiatal hernia) Procedure: PROCEDURE DATE: 10/22/2023 PREOPERATIVE DIAGNOSIS: GERD and hiatal hernia POSTOPERATIVE DIAGNOSIS: ?Same as above. 1) small hiatal hernia, 2) gastric polyp PROCEDURE: [id number] with biopsies Surgeon: ?Óscar Horn M.D.. Ph.D. Housing Property Manager: None ? Anesthesia: IV sedation Estimated blood loss: ?Minimal FINDINGS AND PROCEDURE: ? OPERATIVE INDICATIONS: ?The patient is a 68 year old male known to me who is evaluated for morbid obesity and bariatric surgery. Recent UGI was suggestive of a hiatal hernia, presbyesophagus and severe GERD. He presents for an endoscopy and biopsies. Risks and complications of the surgery were discussed with the patient in advance particularly the possibility of perforation or bleeding that may require surgical intervention. The patient understood the risks and was in agreement with the plan. ? PROCEDURE: After informed consent was obtained by the patient, the patient was ?transferred to the Operating Room and was placed in the supine position.? After successful induction of IV sedation, a mouth block was inserted and the patient was placed in the left lateral decubitus position. An upper endoscopy was performed next, the oropharynx and esophagus appeared within the normal limits. There was a small hiatal hernia. The z-line was regular. Two biopsies were obtained from the distal esohagus 2-3 cm proximal to the GE junction and two additional biopsies from the GE junction. The stomach was entered and it appeared to be of normal size. There was a small polyp in the prepyloric region which was biopsied. There was no stricture or ulcer. A biopsy was obtained from the proximal stomach. No significant bleeding was noted from any of the biopsy sites. The scope was then advanced into the duodenum which appeared to be normal as well. At that point the duodenum ?and the stomach were decompressed and the scope was withdrawn from the patient's mouth. The patient extubated and was transferred in stable condition to the Recovery Room for further care. I was present and performed all steps of the procedure. There were no residents to assist with this case. Óscar Horn M.D., Ph.D. Surgeon: Emeterio Horn MD Anesthesia: MAC Was an Housing Property Manager used for this Procedure?: No Estimated blood loss (mL): 0 IV fluids (mL): 400 Urine output (mL): 0 (No Knutson to record output) Pathology: other (1) gastric polyp x1, 2) gastric fundus x1, 3) EGJ x2, 4) distal esophagus x2) Condition: stable Disposition: PACU
[2023-10-22 11:59] VITALS: BP 105/68; PULSE 80; RESP 16; TEMP 36.7; O2SAT 98
[2023-10-22 12:14] VITALS: BP 97/67; PULSE 76; RESP 16; TEMP 36.6; O2SAT 98
== END 2023-10-22 12:59 | disposition home or self-care (01) ==
PROVIDERS: PCP Family Medicine; Visit Provider Surgery
PROC: 0DJ08ZZ Inspection of Upper Intestinal Tract, Via Natural or Artificial Opening Endoscopic (ICD-10-PCS; CPT 43235; principal; 2023-10-22 11:00)
DX: K31.7 Polyp of stomach and duodenum (principal); K21.9 Gastro-esophageal reflux disease without esophagitis; K44.9 Diaphragmatic hernia without obstruction or gangrene; E66.9 Obesity, unspecified; Z68.30 Body mass index [BMI] 30.0-30.9, adult; I12.9 Hypertensive chronic kidney disease with stage 1 through stage 4 chronic kidney disease, or unspecified chronic kidney disease; N18.9 Chronic kidney disease, unspecified; F32.A Depression, unspecified; F41.9 Anxiety disorder, unspecified; Z79.899 Other long term (current) drug therapy; Z88.8 Allergy status to other drugs, medicaments and biological substances
CPT/HCPCS: 43239; 88305; 88342; J2250; J2704

== ENCOUNTER → 2023-10-22 09:39 | Outpatient (BNV) | payer BC, SELFPAY | PROVIDERS: PCP Family Medicine; Visit Provider Surgery | DX: K21.9 Gastro-esophageal reflux disease without esophagitis (principal); K31.7 Polyp of stomach and duodenum | CPT/HCPCS: 43239 ==

== ENCOUNTER 2023-11-04 13:59 | Outpatient (AMB) | payer BC, SELFPAY ==
--- NOTE | 2023-11-04 13:30 | MHC.OFFVISWM ---
Intake VS Expanded 11/04/23 14:09 BP 137/68 Blood Pressure Location Rt brachial Blood Pressure Position Sitting Pulse 62 Pulse Source Pulse Oximeter Temp 96.5 F L Temperature Source Tympanic Pulse Oximetry 98 Oxygen Delivery Method Room Air Height 5 ft 8 in Weight 187 lb BMI 28.4 Body Fat % 27.5 Body Fat Mass 51.4 Fat Free Mass 135.6 Visceral Fat Rating 15.0 Body Water % 49.6 Body Water Mass 92.8 Muscle Mass/Score 128.8 Basal Metabolic Rate/Score 1,788 Intake Visit Reasons: (OV) Pre Op LSG 11/19/23 Allergies atropine Allergy (Mild, Verified 11/04/23 14:04) UNKNOWN Medication List - Last Reviewed 11/04/23 by Josselin Miranda CMA atorvastatin 10 mg PO DAILY bupropion HCl 200 mg PO DAILY chlorthalidone 25 mg PO DAILY lisinopril 10 mg PO DAILY ondansetron 4 mg PO Q6H PRN pantoprazole 40 mg PO DAILY polyethylene glycol 3350 (Miralax) 17 grams PO DAILY sucralfate 10 mL PO BID HPI HPI Comments History of Present Illness Details Overall weight loss: 42.8lbs, or 18.58% TBWL Is doing 2 Premier shakes (1 scoop in 8oz almond milk) and one meal (9 forks of protein and 9 forks of salad or vegetables). Occasionally he does a Celebrate protein bar Exercise: is doing treadmill at the gym daily for 300 calories PFSH Medical History Chronic renal insufficiency Depression Anxiety Elevated cholesterol HTN (hypertension) Surgical History Hx of colonoscopy No pertinent past surgical history Family History Mother Hypertension High cholesterol Lung cancer Father Hypertension High cholesterol Stroke Heart attack Brother Hypertension Daughter No problems noted. Daughter No problems noted. Social History Alcohol intake: never Patient Tobacco Use Status: Never used Tobacco Physical Exam Vital Signs: Last Vital Signs Temp 96.5 F L 11/04/23 14:09 Pulse 62 11/04/23 14:09 BP 137/68 11/04/23 14:09 Pulse Ox 98 11/04/23 14:09 Oxygen Delivery Method Room Air 11/04/23 14:09 BMI result Body Mass Index 28.4 GI Inspection: Yes normal to inspection and Yes obesity Assessment & Plan Assessment & Plan (1) Overweight: Code(s): E66.3 - Overweight Plan: 1. Plan for lap sleeve gastrectomy including upper GI endoscopy. All tests has been completed and reviewed and the patient is cleared for the surgery. ?If diaphragmatic or ventral hernias are present at time of surgery, these will be repaired laparoscopically as well. Risks and complications were discussed in detail including possible conversion to an open procedure, anastomotic leak, bleeding requiring transfusion, small bowel obstruction, , DVT and pulmonary embolism, cardiac, or pulmonary complications, as detention complications such as anastomotic ulcer, insufficient weight loss and vitamin deficiencies. I emphasized the importance of close follow-up, adherence to instructions and good communication. So far he has proven to be an excellent communicator and very compliant with all our directions accomplishing a great weight loss. I believe that he is an excellent candidate and he is ready. 2. Preop prescriptions were provided and explained the purpose of each one. Need to be purchased preop. Start Pantoprazole now as you get it from the pharmacy, 1 pill per day. Sucralfate and Zofran are for after surgery as needed. 3. Bowel prep: please do 7 packets ?of Miralax mixing each one with a an 8oz glass of water, crystal light, gatorade zero, or propel ?on 11/17/23 and the same amount on 11/18/23. Continue the protein shakes during? the bowel prep. 4. Needs to purchase 1oz medicine cups . 5. Needs to purchase Children's liquid Tylenol for postop pain control. 6. Ne needs to stop the Chlorthalidone on 11/17/23 (last pill that day). Avoid aspirin, motrin, Advil, Aleve, Ibuprofen, Naproxyn. Tylenol is OK. 7. She needs to purchase the Celebrate 4:1 protein shakes from the hospital's gift shop. 8. Will do basic preop blood work-up any day between Saturday11/11/23 and Saturday11/16/23 fasting for 12 hours and is scheduled to see the Anesthesiologist prior to the day of surgery. 9. Importance of adherence to postop folllow-up and recommendations was underscored and he understands that. 10. Stop food and bars as of Saturday11/12/23 and continue with 2 Premier protein shakes (HALF scoop EACH in 8oz almond milk) at 8am-10am and 11am-1pm and THREE more Premier protein shakes with ONE scoop EACH in 8oz of almond milk at 2pm-4pm, 5pm-7pm and 8pm-10pm. 11. No soups, broths or V8 12. The patient's?medical?history has been reviewed and they are considered low risk for post op DVT and therefore DVT prophylaxis is not considered necessary. Travel after surgery was reviewed. The patient has not disclosed any travel plans during the first 30 days after surgery and they have been advised that within the first 30 days after surgery any bus, plane, train or car travel over 2 hours in duration is contraindicated due to the possibility of developing blood clots from immobility. Any travel, needs to include periods of ambulation of 10 minutes in duration every 2 hours.? Patient was instructed to discuss any plans for travel during this period with their bariatric surgeon.? 13. Please take at the day of surgery the following medications: Lisinopril only. Check your blood pressure daily and let me know if your blood pressure drops below 120/70. 14. Absolutely no smoking or vaping, or marijuana until the surgery and for at least the first 4 weeks. Only nicotine patches are allowed. 15. Send me weight measurements on Wednesdays and then on Saturday11/19/23, the day of surgery before you go to the hospital. 16. Avoid any steroids by mouth for any reason. Let me know if someone prescribes them to you Orders: Orders Comprehensive Met. Panel Today E66.3 - Overweight, E78.00 - Pure hypercholesterolemia, unspecified, I10 - Essential (primary) hypertension, N18.9 - Chronic kidney disease, unspecified Type and Screen Today E66.3 - Overweight, E78.00 - Pure hypercholesterolemia, unspecified, I10 - Essential (primary) hypertension, N18.9 - Chronic kidney disease, unspecified Partial Thromboplastin Time Today E66.3 - Overweight, E78.00 - Pure hypercholesterolemia, unspecified, I10 - Essential (primary) hypertension, N18.9 - Chronic kidney disease, unspecified C Reactive Protein Today E66.3 - Overweight, E78.00 - Pure hypercholesterolemia, unspecified, I10 - Essential (primary) hypertension, N18.9 - Chronic kidney disease, unspecified Lipid Panel Today E66.3 - Overweight, E78.00 - Pure hypercholesterolemia, unspecified, I10 - Essential (primary) hypertension, N18.9 - Chronic kidney disease, unspecified Hemoglobin A1c Today E66.3 - Overweight, E78.00 - Pure hypercholesterolemia, unspecified, I10 - Essential (primary) hypertension, N18.9 - Chronic kidney disease, unspecified Insulin Today E66.3 - Overweight, E78.00 - Pure hypercholesterolemia, unspecified, I10 - Essential (primary) hypertension, N18.9 - Chronic kidney disease, unspecified TSH reflex Free T4 Today E66.3 - Overweight, E78.00 - Pure hypercholesterolemia, unspecified, I10 - Essential (primary) hypertension, N18.9 - Chronic kidney disease, unspecified Prothrombin Time INR Today E66.3 - Overweight, E78.00 - Pure hypercholesterolemia, unspecified, I10 - Essential (primary) hypertension, N18.9 - Chronic kidney disease, unspecified Complete Blood Count Auto Diff Today E66.3 - Overweight, E78.00 - Pure hypercholesterolemia, unspecified, I10 - Essential (primary) hypertension, N18.9 - Chronic kidney disease, unspecified Medications: New pantoprazole 40 mg PO DAILY 30 tabs 2RF K21.9 - Gastro-esophageal reflux disease without esophagitis sucralfate 10 mL PO BID 400 mL 2RF K21.9 - Gastro-esophageal reflux disease without esophagitis ondansetron Only take one every 12 hours as needed if you have nausea 4 mg PO Q6H PRN 20 tabs 2RF nausea and vomiting R11.0 - Nausea polyethylene glycol 3350 (Miralax) Mix each packet with 8oz of water, Crystal light, or Gatorade zero, or Propel and do 7 packets on 11/17/23 and another 7 packets on 11/18/23 17 grams PO DAILY 14 ea 0RF Z01.818 - Encounter for other preprocedural examination Coding Level of Care Code Est Pt Level 4 (15777) Diagnoses Overweight E66.3 Time Spent (min) 30
[2023-11-04 14:09] VITALS: BP 137/68; PULSE 62; TEMP 35.8; O2SAT 98; BMI 28.4
== END 2023-11-04 14:47 | disposition home or self-care (01) ==
PROVIDERS: PCP Family Medicine; Visit Provider Surgery
DX: E66.3 Overweight (principal); Z68.28 Body mass index [BMI] 28.0-28.9, adult
CPT/HCPCS: 99024

== ENCOUNTER → 2023-11-04 13:59 | Outpatient (BNVA) | payer BC, SELFPAY | PROVIDERS: PCP Family Medicine; Visit Provider Surgery | DX: E66.3 Overweight (principal); E78.00 Pure hypercholesterolemia, unspecified; I10 Essential (primary) hypertension; N18.9 Chronic kidney disease, unspecified; K21.9 Gastro-esophageal reflux disease without esophagitis; R11.0 Nausea; Z01.818 Encounter for other preprocedural examination ==

== ENCOUNTER 2023-11-19 | Outpatient (REF) | payer BC, SELFPAY ==
[2023-11-04 13:58] LABS: MANUAL DIFF FLAG NO
[2023-11-04 14:28] LABS: Basophils Percent Auto 0.7 % (0-2); Eosinophils Absolute Auto 0.2 X10*3/uL (0.0-0.4); Eosinophils Percent Auto 3.5 % (0-4); Hemoglobin 13.4 g/dl (14.0-18.0); Imm Gran Abs Auto 0.02 X10*3/uL (0.00-0.03); Imm Gran Pct Auto 0.3 % (0.0-0.4); Lymphocytes Absolute Auto 1.7 X10*3/uL (1.2-4.9); Lymphocytes Percent Auto 28.1 % (20-40); Mean Corpuscular HGB Conc 32.7 g/dl (31.0-36.0); Mean Corpuscular Hemoglobin 29.8 pg (27.0-33.0); Mean Corpuscular Volume 91.1 fL (80.0-98.0); Mean Platelet Volume 11.3 fL (9.4-12.4); Monocytes Absolute Auto 0.6 X10*3/uL (0.1-1.2); Monocytes Percent Auto 9.5 % (2-11); Neutrophils Absolute Auto 3.5 x10*3/uL (2.0-8.3); Neutrophils Percent Auto 57.9 % (45-73); Platelet Count 190 X10*3/uL (160-400); Red Cell Distribution Width 13.1 % (11.0-16.0)
[2023-11-04 14:33] LABS: Prothrombin Time 11.6 SEC (11.1-13.3)
[2023-11-04 14:36] LABS: Partial Thromboplastin Time 29.9 SEC (26.0-36.4)
[2023-11-04 15:15] LABS: Alanine Aminotransferase 24 U/L (0-40); Albumin Level 4.4 g/dL (3.5-5.0); Alkaline Phosphatase 56 U/L (39-117); Anion Gap 14 (12-20); Aspartate Amino Transferase 26 U/L (5-37); Bilirubin Total 0.6 mg/dL (0.0-1.0); Blood Urea Nitrogen 34 mg/dL (9-16); C Reactive Protein 0.12 mg/dL (< or = 0.50); Calcium 10.2 mg/dL (8.4-10.2); Carbon Dioxide 26 mmol/L (22-29); Chloride 106 mmol/L (96-108); Cholesterol 122 mg/dL (<200); Estimated Glomerular Filt Rate 47; Glucose Random 82 mg/dL (60-115); HDL Cholesterol 42 mg/dL (>40); LDL Cholesterol Calculated 70 mg/dL (<100); Sodium 141 mmol/L (135-145); Total Protein 6.8 g/dL (6.5-8.0); Triglycerides 51 mg/dL (<150)
[2023-11-04 15:17] LABS: Estimated Average Glucose 103 mg/dL; Hemoglobin A1c % 5.2 % (<6.0)
[2023-11-04 15:33] LABS: Insulin 8 uU/mL (2-29); TSH reflex Free T4 1.05 uIU/mL (0.32-4.0)
[2023-11-12 10:53] VITALS: BMI 43.5
== END 2023-11-19 00:01 ==
LOC: HO.PAT
PROVIDERS: PCP Family Medicine; Visit Provider Surgery
DX: Z01.818 Encounter for other preprocedural examination (principal); E66.9 Obesity, unspecified; I12.9 Hypertensive chronic kidney disease with stage 1 through stage 4 chronic kidney disease, or unspecified chronic kidney disease; N18.9 Chronic kidney disease, unspecified; E78.00 Pure hypercholesterolemia, unspecified
CPT/HCPCS: 36415; 80053; 80061; 83036; 83525; 84443; 85025; 85610; 85730; 86140; 86850; 86900; 86901